=== PATIENT | female | born 1995 | race Caucasian/White ===

== ENCOUNTER 2019-10-14 14:14 | Emergency (ER) | payer OTHER, SELFPAY ==
[2019-10-14 14:17] VITALS: BP 113/73; PULSE 99; RESP 18; TEMP 37; O2SAT 100
--- NOTE | 2019-10-14 14:27 | ED.URI ---
HPI - URI/Sore Throat General Chief Complaint: Upper Respiratory Infection Stated Complaint: sore throat/cough/congestion History of Present Illness HPI Narrative: This is a 24-year-old female comes in complaining of cough and congestion has been going on for approximately a week and a half patient states that she is coughing more when she lays down she has ear pain and postnasal drainage Related Data Home Medications Medication Instructions Recorded Confirmed WN-LQ-adwjvd/PR-mzuqmd-mzuqvwe cap PO 10/14/19 [Vicks DayQuil-NyQuil] Depo-Provera 10/14/19 Allergies Allergy/AdvReac Type Severity Reaction Status Date / Time Sulfa (Sulfonamide Allergy Dyspnea / Verified 10/14/19 14:31 Antibiotics) SOB topiramate [From Topamax] Allergy Dyspnea / Verified 10/14/19 14:30 SOB Review of Systems Review of Systems: Narrative: CONSTITUTIONAL: Denies fever, chills, or sweats. EYES: Denies visual changes, redness, or discharge. ENT: Reports rhinorrhea, congestion, sore throat, or otalgia. CARDIOVASCULAR:Denies chest pain, palpitations, or edema. RESPIRATORY: Reports cough or dyspnea. GASTROINTESTINAL: Denies abdominal pain, nausea, vomiting, or diarrhea. GENITOURINARY: Denies dysuria or hematuria. SKIN:[Denies rash or itching. MUSCULOSKELETAL:Denies back pain, joint pain, or myalgia. NEUROLOGIC: Denies headache, numbness, or weakness. PSYCHIATRIC:Denies anxiety or depression PMFSH Comments At time as signature, I have reviewed and agree with nursing past medical, social, surgical and family history. Please see nursing chart for further information. There is no relevant family history pertinent to the presenting complaint. Exam Narrative: Exam Narrative: GENERAL:Well-appearing, well-nourished, and in no acute distress. HEAD:Normocephalic, atraumatic. EYES: PERRLA and EOMI. ENT: Nares clear, moderate rhinorrhea or epistaxis. Mucous membranes moist. Pharyngeal erythema NECK: Supple. CHEST: diminished wheezes bilaterally auscultation. No respiratory distress. HEART: Regular rate and rhythm. No murmur heard. Normal peripheral pulses. ABDOMEN: Soft, nontender, nondistended, normal active bowel sounds. EXTREMITIES: Normal range of motion. No edema. SKIN: Warm, dry, no rash. NEURO: No focal deficits. Alert and oriented x3. Course Vital Signs Vital signs: Vital Signs Temperature 98.6 F 10/14/19 14:17 Pulse Rate 99 10/14/19 14:17 Respiratory Rate 18 10/14/19 14:17 Blood Pressure 113/73 10/14/19 14:17 Pulse Oximetry 100 10/14/19 14:17 Temperature 98.6 F 10/14/19 14:17 Pulse Rate 99 10/14/19 14:17 Respiratory Rate 18 10/14/19 14:17 Blood Pressure 113/73 10/14/19 14:17 Pulse Oximetry 100 10/14/19 14:17 MDM - URI/Sore Throat Differential Diagnosis Differential diagnosis: Likely upper respiratory infection, otitis media, sinusitis, viral infection, bronchitis, influenza and pharyngitis Discharge Plan Discharge Clinical Impression: Bronchitis Patient Disposition: Home, Self-Care Condition: Stable Instructions: Antibiotic Form, Acute Bronchitis (ED), Allergies (ED) Prescriptions: New azithromycin [Zithromax Z-Juan] 250 mg tablet See Rx Instructions .ROUTE .COMPLEX Qty: 6 RF: 0 albuterol sulfate [Ventolin HFA] 90 mcg/actuation HFA aerosol inhaler 2 puff INHALATION QID PRN (Reason: shortness of breath or wheezing) Qty: 18 RF: 0 No Action Vicks DayQuil-NyQuil 10-5-325mg(d)/ 15-325-6.25mg Capsule, Sequential PO RF: 0 Depo-Provera RF: 0 Follow-up/Referrals: PHYSICIAN NOT ON STAFF,NONSTAFF [Primary Care Provider] - Time of Disposition: 14:41 Discharge Date/Time: 10/14/19 14:45
== END 2019-10-14 14:45 | disposition home or self-care (01) ==
PROVIDERS: Emergency Provider Nurse Practitioner Family
DX: J40 Bronchitis, not specified as acute or chronic (principal)
CPT/HCPCS: 99213; G0463

== ENCOUNTER 2019-10-25 18:36 | Emergency (ER) | payer OTHER, SELFPAY ==
[2019-10-25 18:50] VITALS: BP 121/85; PULSE 80; RESP 16; TEMP 36.9; O2SAT 100
--- NOTE | 2019-10-25 19:18 | ED.LOWEXIN ---
HPI - Extremity Injury (Lower) General Chief Complaint: Extremity Injury, Lower Stated Complaint: left foot injury History of Present Illness HPI Narrative: This is a 24 year old that started having pain on the foot close to her toes and it has continue to get worse . Patient states that it feels like she is alber walking on something and she does not know what to do. Related Data Home Medications Medication Instructions Recorded Confirmed medroxyprogesterone [Depo-Provera] 150 mg IM [id number] 10/25/19 10/25/19 Allergies Allergy/AdvReac Type Severity Reaction Status Date / Time Sulfa (Sulfonamide Allergy Rash Verified 10/25/19 18:51 Antibiotics) topiramate [From Topamax] Allergy Rash Verified 10/25/19 18:51 Review of Systems Review of Systems: Narrative: CONSTITUTIONAL: Denies fever, chills, or sweats. EYES: Denies visual changes, redness, or discharge. ENT: Denies rhinorrhea, congestion, sore throat, or otalgia. CARDIOVASCULAR:Denies chest pain, palpitations, or edema. RESPIRATORY: Denies cough or dyspnea. GASTROINTESTINAL: Denies abdominal pain, nausea, vomiting, or diarrhea. GENITOURINARY: Denies dysuria or hematuria. SKIN:[Denies rash or itching. MUSCULOSKELETAL:Denies back pain, joint pain, or myalgia. foot pain when she step on the foot NEUROLOGIC: Denies headache, numbness, or weakness. PSYCHIATRIC:Denies anxiety or depression PMFSH Social History Social History Gender identity (if verbalized by the patient): Female Comments At time as signature, I have reviewed and agree with nursing past medical, social, surgical and family history. Please see nursing chart for further information. There is no relevant family history pertinent to the presenting complaint. Exam Narrative: Exam Narrative: GENERAL:Well-appearing, well-nourished, and in no acute distress. HEAD:Normocephalic, atraumatic. EYES: PERRLA and EOMI. ENT: Nares clear, no rhinorrhea or epistaxis. Mucous membranes moist. NECK: Supple. CHEST: Clear to auscultation. No respiratory distress. HEART: Regular rate and rhythm. No murmur heard. Normal peripheral pulses. ABDOMEN: Soft, nontender, nondistended, normal active bowel sounds. EXTREMITIES: Normal range of motion. No edema. burning of her metarasal area when she steps down on her foot with shooting pain. No pain when not walking. SKIN: Warm, dry, no rash. NEURO: No focal deficits. Alert and oriented x3. Course Vital Signs Vital signs: Vital Signs Temperature 98.5 F 10/25/19 18:50 Pulse Rate 80 10/25/19 18:50 Respiratory Rate 16 10/25/19 18:50 Blood Pressure 121/85 10/25/19 18:50 Pulse Oximetry 100 10/25/19 18:50 Temperature 98.5 F 10/25/19 18:50 Pulse Rate 80 10/25/19 18:50 Respiratory Rate 16 10/25/19 18:50 Blood Pressure 121/85 10/25/19 18:50 Pulse Oximetry 100 10/25/19 18:50 Discharge Plan Discharge Clinical Impression: Pickard neuroma Patient Disposition: Home, Self-Care Condition: Stable Instructions: Antibiotic Form, Arthralgia (ED), Pickard Neuroma (ED) Additional Instructions: You need to call your Security Monitor and have a conversation with him. Especially if you are not able to tolerate the pain . NSAIDs help decrease swelling and pain or fever. This medicine is available with or without a doctor's order. NSAIDs can cause stomach bleeding or kidney problems in certain people. If you take blood thinner medicine, always ask your healthcare provider if NSAIDs are safe for you. Always read the medicine label and follow directions. Take your medicine as directed. Contact your healthcare provider if you think your medicine is not helping or if you have side effects. Tell him or her if you are allergic to any medicine. Keep a list of the medicines, vitamins, and herbs you take. Include the amounts, and when and why you take them. Bring the list or the pill bottles to follow-up visits. Carry your medicine list with you in case of an ginette
== END 2019-10-25 19:42 | disposition home or self-care (01) ==
PROVIDERS: Emergency Provider Nurse Practitioner Family
DX: G57.62 Lesion of plantar nerve, left lower limb (principal)
CPT/HCPCS: 99213; G0463

== ENCOUNTER 2020-04-10 13:12 | Emergency (ER) | payer OTHER, SELFPAY ==
[2020-04-10 13:16] VITALS: BP 134/83; PULSE 104; RESP 17; TEMP 36.3; O2SAT 100
--- NOTE | 2020-04-10 13:39 | ED.GENADULT ---
HPI - General Adult General Chief complaint: Unspecified Stated complaint: covid pos/st Time Seen by Provider: 04/10/20 13:24 Source: patient Mode of arrival: ambulatory Limitations: no limitations History of Present Illness HPI narrative: Patient is a 25-year-old female who presents with tonsillar hypertrophy and discomfort patient was diagnosed with COVID-19 on Sunday patient symptoms began Sunday patient's only complaint at this time is sore throat she denies any dyspnea chest pain minimal cough no vomiting diarrhea has not taken anything for symptom and notes just mild discomfort of the throat with swallowing Related Data Home Medications Medication Instructions Recorded Confirmed medroxyprogesterone [Depo-Provera] 150 mg IM [id number] 10/25/19 04/10/20 Allergies Allergy/AdvReac Type Severity Reaction Status Date / Time Sulfa (Sulfonamide Allergy Rash Verified 04/10/20 13:23 Antibiotics) topiramate [From Topamax] Allergy Rash Verified 04/10/20 13:23 Review of Systems Review of Systems: All systems reviewed & are unremarkable except as noted in HPI and below PMFSH Social History Social History Gender identity (if verbalized by the patient): Female Exam Narrative: Exam Narrative: GENERAL: Well-appearing, well-nourished, and in no acute distress. HEAD: Normocephalic, atraumatic. EYES: PERRLA and EOMI. ENT: Nares clear, no rhinorrhea or epistaxis. Mucous membranes moist. Oropharynx with tonsillar hypertrophy no exudate uvula midline no trismus minimal swelling noted NECK: Supple. No adenopathy or masses. CHEST: Clear to auscultation. No respiratory distress. No wheezes rales or rhonchi HEART: Regular rate and rhythm. No murmur heard. EXTREMITIES: Normal range of motion. No edema. SKIN: Warm, dry, no rash. NEURO: No focal deficits. Alert and oriented x3. PSYCH: Normal mood and affect. Course Course Emergency Course: Patient will be discharged treated symptomatically felt appropriate for outpatient reevaluation Vital Signs Vital signs: Vital Signs Temperature 97.4 F L 04/10/20 13:16 Pulse Rate 104 H 04/10/20 13:16 Respiratory Rate 17 04/10/20 13:16 Blood Pressure 134/83 04/10/20 13:16 Pulse Oximetry 100 04/10/20 13:16 Temperature 97.4 F L 04/10/20 13:16 Pulse Rate 104 H 04/10/20 13:16 Respiratory Rate 17 04/10/20 13:16 Blood Pressure 134/83 04/10/20 13:16 Pulse Oximetry 100 04/10/20 13:16 Medical Decision Making MDM Narrative Medical decision making narrative: Patient with no concerning findings at this time will be treated symptomatically provided with reasons to return Vital Signs Vital Signs: Vital Signs Temperature 97.4 F L 04/10/20 13:16 Pulse Rate 104 H 04/10/20 13:16 Respiratory Rate 17 04/10/20 13:16 Blood Pressure 134/83 04/10/20 13:16 Pulse Oximetry 100 04/10/20 13:16 Temperature 97.4 F L 04/10/20 13:16 Pulse Rate 104 H 04/10/20 13:16 Respiratory Rate 17 04/10/20 13:16 Blood Pressure 134/83 04/10/20 13:16 Pulse Oximetry 100 04/10/20 13:16 Discharge Plan Discharge Clinical Impression: Pharyngitis, COVID-19 Patient Disposition: Home, Self-Care Condition: Stable Instructions: Antibiotic Form, COVID-19 (Coronavirus Disease 2019) (ED) Additional Instructions: Follow up with your primary care provider within 7-10 days for reevaluation. Go to ER for shortness of breath, difficulty breathing, chest pain, fever/chills, weakness, nauseau/vomitting, unable to swallow or open the mouth etc. or any other concerns. Stay well-hydrated Take any prescribed medications as directed. Follow patient education sheets If you do not have a drug allergy to tylenol or motrin and can tolerate it then take tylenol or motrin as needed for discomfort/pain. Prescriptions: New ibuprofen [IBU] 600 mg tablet 600 mg PO QID PRN (Reason: fever or pain) Qty: 7
[2020-04-10] MEDS: IBUPROFEN 600 MG TABLET PO (14:15)
[2020-04-10 14:26] VITALS: BP 128/88; PULSE 98; RESP 20; O2SAT 98
== END 2020-04-10 14:27 | disposition home or self-care (01) ==
PROVIDERS: Emergency Provider Emergency Medicine
DX: U07.1 COVID-19 (principal); J02.9 Acute pharyngitis, unspecified
CPT/HCPCS: 99283; A9270

== ENCOUNTER 2021-08-18 16:12 | Outpatient (CLI) | payer OTHER, SELFPAY ==
--- NOTE | ~2021-08-18 | US_ITS ---
EXAMINATION: US thyroid DATE: 08/18/2021 16:41 INDICATION: Nontoxic goiter, unspecified. TECHNIQUE: Multiple ultrasound images of the thyroid were obtained. COMPARISON: None. FINDINGS: The right thyroid lobe measures 5.2 x 1.7 x 2.0 cm. The left thyroid lobe measures 5.0 x 1.4 x 1.7 c m. The thyroid is diffusely heterogeneous and hypoechoic with increased vascularity. No discrete nod ule. IMPRESSION: 1. 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 Reviewed, dictated and finalized at location E. IN[facility]
== END 2021-08-18 16:13 | disposition home or self-care (01) ==
LOC: ANHIMG 16:14
PROVIDERS: PCP Family Medicine; Visit Provider Family Medicine
DX: E04.9 Nontoxic goiter, unspecified (principal)
CPT/HCPCS: 76536

== ENCOUNTER 2023-02-08 10:31 | Outpatient (CLI) | payer OTHER, SELFPAY ==
[2023-02-08 11:36] LABS: Free T4 Free Thyroxine 1.06 ng/mL (0.78-2.19)
[2023-02-08 11:43] LABS: Total Triiodothyronine (T3) 1.51 NG/ML (0.97-1.69)
[2023-02-08 11:53] LABS: HIV 1/2 Ab P24 Ag Result Negative (Negative)
== END 2023-02-08 10:32 | disposition home or self-care (01) ==
LOC: ANHLAB 10:33
PROVIDERS: PCP Family Medicine; Visit Provider Student in an Organized Health Care Education/Training Program
DX: Z34.90 Encounter for supervision of normal pregnancy, unspecified, unspecified trimester (principal); E06.3 Autoimmune thyroiditis; N94.89 Other specified conditions associated with female genital organs and menstrual cycle
CPT/HCPCS: 36415; 84439; 84443; 84480; 86703; 86900; 86901; G0432

== ENCOUNTER 2023-04-17 18:59 | Outpatient (RCR) | payer OTHER, SELFPAY ==
[2023-04-17 19:35] VITALS: BP 108/65; PULSE 107
== END 2023-07-16 23:59 | disposition home or self-care (01) ==
LOC: ANHOBOP 18:59
PROVIDERS: PCP Family Medicine; Visit Provider Obstetrics & Gynecology
DX: O36.8130 Decreased fetal movements, third trimester, not applicable or unspecified (principal); Z3A.28 28 weeks gestation of pregnancy
CPT/HCPCS: 59025

== ENCOUNTER 2023-05-04 15:10 | Outpatient (CLI) | payer OTHER, SELFPAY ==
[2023-05-04 16:24] LABS: Basophils Absolute Auto 0.1 K/mm3 (0.0-0.1); Basophils Percent Auto 0.5 % (0.2-1.2); Eosinophils Absolute Auto 0.1 K/mm3 (0-0.3); Hematocrit 34.4 % (37.0-47.0); Hemoglobin 11.1 g/dL (12.0-15.0); Immature Granulocyte Absolute 0.54 K/mm3 (0.00-0.031); Immature Granulocyte Percent A 4.7 % (0-0.5); Lymphocytes Absolute Auto 2.48 K/mm3 (0.9-3.2); Lymphocytes Percent Auto 21.5 % (18.3-44.2); Mean Corpuscular HGB Conc 32.3 g/dl (32-36); Mean Corpuscular Hemoglobin 28.7 pg (26-34); Mean Corpuscular Volume 88.9 fl (80-100); Mean Platelet Volume 10.5 fl (7.4-10.4); Monocytes Absolute Auto 1.3 K/mm3 (0.1-0.6); Monocytes Percent Auto 10.9 % (2.6-8.5); Neutrophils Absolute Auto 7.1 K/mm3 (1.3-6.7); Neutrophils Percent Auto 61.4 % (45.5-73.1); Platelet Count Result 176 k/mm3 (150-375); Red Blood Count 3.87 M/mm3 (4.2-5.4); Red Cell Distribution Width 13.3 % (11.5-14.5); White Blood Count 11.6 K/mm3 (4.5-10.0)
[2023-05-04 16:38] LABS: Glucose 1 Hour PP 50gm Dose 108 mg/dL
[2023-05-04 17:54] LABS: Free T4 Free Thyroxine 0.68 ng/mL (0.78-2.19)
[2023-05-04 18:08] LABS: HIV 1/2 Ab P24 Ag Result Negative (Negative)
== END 2023-05-04 15:11 | disposition home or self-care (01) ==
LOC: ANHLAB 15:12
PROVIDERS: PCP Family Medicine; Visit Provider Obstetrics & Gynecology
DX: Z34.90 Encounter for supervision of normal pregnancy, unspecified, unspecified trimester (principal); E06.3 Autoimmune thyroiditis
CPT/HCPCS: 36415; 82947; 84439; 84443; 85025; 86703; G0432

== ENCOUNTER 2023-06-10 09:10 | Observation (INO) | payer OTHER, SELFPAY ==
[2023-06-10] VITALS (21 sets, daily range): BP systolic 101–129; BP diastolic 73–88; PULSE 102–150; TEMP 36.2; O2SAT 98–99; BMI 33.3
--- NOTE | 2023-06-10 09:10 | OBADM ---
This patient, Helen Morrissey, admitted to the OB room Labor/Delivery/Recovery 106 for observation. Patient/family oriented to hospital policies and general routines including ID bracelet, bed and alarms, visiting hours, pain management, procedures, bathroom and other care routines, personal items, smoking policy, room service/diet, and visiting hours. Patient/Family are encouraged to report perceived risks to care and to ask questions if they do not understand what they are told or what they should do.
[2023-06-10 11:23] LABS: Appearance Urine Cloudy (Clear); Bacteria Urine 4+ /hpf; Bilirubin Urine Negative (Negative); Blood Urine 3+ (Negative); Color Urine Yellow (Yellow); Glucose Urine UA Negative (Negative); Ketones Urine 1+ mg/dL (Negative); Leukocyte Esterase Ur 3+ LEU/UL (NEGATIVE); Need Manual Microscopic Reviewed; Nitrate Urine Negative (Negative); Protein Urine Trace mg/dL (Negative); Specific Grav Ur 1.015 (1.001-1.035); Squamous Epithelial Cell Urine Few /hpf (Few); Urobilinogen Urine 0.2 mg/dL (<2.0); WBC Urine 51-100 /hpf (0-3)
[2023-06-10 11:45] LABS: Add Urine Microscopic? YES
--- NOTE | 2023-06-12 13:55 | P.PNOB_ITS ---
OB - Triage/Final Diagnosis Visit Information Reason for evaluation: threatened labor Comments/Additional reasons for admission: I have assessed the risk for this patient, Helen Macias Morrissey, and determined that she would benefit from observation care. Evaluation Laboratory results: Laboratory Tests 06/10/23 10:54 Urine Color Yellow Urine Appearance Cloudy H Urine pH 7.0 Ur Specific [place] 1.015 Urine Protein Trace Urine Glucose (UA) Negative Urine Ketones 1+ H Ur Blood (Man) 3+ H Urine Nitrate Negative Urine Bilirubin Negative Urine Urobilinogen 0.2 Ur Leukocyte Esterase 3+ H Add Ur Microanalysis Reviewed Urine RBC 6-10 H Urine WBC 51-100 Ur Squamous Epith Cells Few Urine Bacteria 4+ H Urine Casts 3-5
== END 2023-06-10 12:27 | disposition home or self-care (01) ==
PROVIDERS: Admitting Provider Obstetrics & Gynecology; PCP Family Medicine; Visit Provider Obstetrics & Gynecology
DX: O47.03 False labor before 37 completed weeks of gestation, third trimester (principal); O26.893 Other specified pregnancy related conditions, third trimester; R10.9 Unspecified abdominal pain; Z3A.35 35 weeks gestation of pregnancy
CPT/HCPCS: 81001; 84112; 87086; 87088; G0378; G0379

== ENCOUNTER 2023-06-24 11:52 | Outpatient (CLI) | payer OTHER, SELFPAY ==
[2023-06-24 12:15] VITALS: BP 132/87; PULSE 135
[2023-06-24 12:22] LABS: Basophils Absolute Auto 0.1 K/mm3 (0.0-0.1); Basophils Percent Auto 0.4 % (0.2-1.2); Eosinophils Absolute Auto 0.3 K/mm3 (0-0.3); Hematocrit 41.1 % (37.0-47.0); Hemoglobin 13.4 g/dL (12.0-15.0); Immature Granulocyte Absolute 0.12 K/mm3 (0.00-0.031); Lymphocytes Absolute Auto 2.05 K/mm3 (0.9-3.2); Lymphocytes Percent Auto 16.2 % (18.3-44.2); Mean Corpuscular HGB Conc 32.6 g/dl (32-36); Mean Corpuscular Hemoglobin 28.5 pg (26-34); Mean Corpuscular Volume 87.3 fl (80-100); Mean Platelet Volume 11.1 fl (7.4-10.4); Monocytes Absolute Auto 1.2 K/mm3 (0.1-0.6); Monocytes Percent Auto 9.1 % (2.6-8.5); Neutrophils Percent Auto 71.3 % (45.5-73.1); Platelet Count Result 166 k/mm3 (150-375); Red Blood Count 4.71 M/mm3 (4.2-5.4); Red Cell Distribution Width 15.2 % (11.5-14.5); White Blood Count 12.6 K/mm3 (4.5-10.0)
[2023-06-24 12:30] VITALS: BP 122/83; PULSE 113
[2023-06-24 12:31] LABS: Creatinine Urine 71.8 mg/dL; Total Protein Urine Random 8 mg/dL; Ur Ttl Prot Creatinine Ratio 0.11 mg/mg (0-0.20)
[2023-06-24 12:32] LABS: Alanine Aminotransferase 13 U/L (6-35); Albumin Level 3.5 g/dL (3.5-5.1); Alkaline Phosphatase 163 U/L (38-126); Anion Gap 8 mmol/L (8-16); Aspartate Amino Transferase 23 U/L (14-36); Bilirubin,Total 0.4 mg/dL (0.2-1.3); Blood Urea Nitrogen 3 mg/dL (7-17); Calcium 9.4 mg/dL (8.4-10.2); Carbon Dioxide 18 mmol/L (22-30); Chloride 108 mmol/L (98-107); Estimated Glomerular Filt Rate > 60; Glucose 97 mg/dL (65-110); Potassium 3.9 mmol/L (3.4-5.0); Sodium 134 mmol/L (137-145); Uric Acid 5.1 mg/dL (2.5-7.5)
[2023-06-24 12:45] VITALS: BP 117/80; PULSE 105
[2023-06-24 12:48] LABS: Add Urine Microscopic? YES; Appearance Urine Cloudy (Clear); Bacteria Urine 2+ /hpf; Bilirubin Urine Negative (Negative); Blood Urine Negative (Negative); Color Urine Yellow (Yellow); Glucose Urine UA Negative (Negative); Ketones Urine 1+ mg/dL (Negative); Leukocyte Esterase Ur 1+ LEU/UL (NEGATIVE); Need Manual Microscopic Reviewed; Nitrate Urine Negative (Negative); Non Pathogenic Casts 0-2; Protein Urine Negative (Negative); RBC Urine 0-2 /hpf (0-2); Specific Grav Ur 1.012 (1.001-1.035); Squamous Epithelial Cell Urine Few /hpf (Few); Urobilinogen Urine 0.2 mg/dL (<2.0); WBC Urine 21-50 /hpf (0-3)
--- NOTE | 2023-06-24 12:53 | PC.NURSE ---
1253--Reported labs, BPs and NST to Dr. Conley. DC orders given.
[2023-06-24 13:31] VITALS: BP 132/78; PULSE 68
== END 2023-06-25 13:58 | disposition home or self-care (01) ==
LOC: ANHOBOP 11:58 → ANHLDR 07-03 06:35
PROVIDERS: PCP Family Medicine; Visit Provider Obstetrics & Gynecology
DX: O13.9 Gestational [pregnancy-induced] hypertension without significant proteinuria, unspecified trimester (principal); Z3A.00 Weeks of gestation of pregnancy not specified
CPT/HCPCS: 36415; 59025; 80053; 81001; 82570; 84156; 84550; 85025; 87086; 87088; 99199

== ENCOUNTER 2023-07-01 23:03 | Inpatient (IN) | payer OTHER, SELFPAY ==
[2023-07-01 23:14] VITALS: BP 129/91; PULSE 99
[2023-07-01 23:31] VITALS: BP 127/93; PULSE 95
[2023-07-02] VITALS (187 sets, daily range): BP systolic 79–139; BP diastolic 41–99; PULSE 30–144; RESP 18; TEMP 36.1–37.5; O2SAT 78–100; BMI 35.2
[2023-07-02 00:03] LABS: Basophils Percent Auto 0.4 % (0.2-1.2); Eosinophils Absolute Auto 0.4 K/mm3 (0-0.3); Eosinophils Percent Auto 4.1 % (0-4.4); Hematocrit 38.1 % (37.0-47.0); Hemoglobin 12.6 g/dL (12.0-15.0); Immature Granulocyte Absolute 0.17 K/mm3 (0.00-0.031); Immature Granulocyte Percent A 1.8 % (0-0.5); Lymphocytes Absolute Auto 2.37 K/mm3 (0.9-3.2); Mean Corpuscular HGB Conc 33.1 g/dl (32-36); Mean Corpuscular Volume 87.6 fl (80-100); Mean Platelet Volume 11.6 fl (7.4-10.4); Monocytes Absolute Auto 1.2 K/mm3 (0.1-0.6); Monocytes Percent Auto 12.7 % (2.6-8.5); Neutrophils Absolute Auto 5.3 K/mm3 (1.3-6.7); Platelet Count Result 162 k/mm3 (150-375); Red Blood Count 4.35 M/mm3 (4.2-5.4); Red Cell Distribution Width 14.6 % (11.5-14.5); White Blood Count 9.5 K/mm3 (4.5-10.0)
--- NOTE | 2023-07-02 00:39 | LDADM ---
This patient, Helen Morrissey, was admitted to Labor/Delivery/Recovery 105 on 07/01/23 at 23:03. Plans for labor, pain management and were discussed with patient. Patient/family oriented to hospital policies and general routines including ID bracelet, bed and alarms, visiting hours, pain management, procedures, bathroom and other care routines, personal items, smoking policy, room service/diet and guest tray routines, infant security routines, and visiting hours. Patient/Family are encouraged to report perceived risks to care and to ask questions if they do not understand what they are told or what they should do. See OBIX for further documentation.
[2023-07-02] MEDS: LACTATED RINGERS 1,000 ML 125 ML IV CONT ×3 (03:56→09:28)
[2023-07-02] MEDS: fentaNYL CITRATE INJ (*CRX) 100 MCG/2 ML VIAL IV PUSH ×2 (03:56→06:03)
[2023-07-02] MEDS: LORATADINE 10 MG TABLET PO (06:04)
[2023-07-02] MEDS: SALINE 0.65% NAS SOLN 44 ML BTL 1 SPRAY NASAL (06:04)
--- NOTE | 2023-07-02 06:06 | WPDANESEPP ---
Anes - Eval Pre Procedure Procedure: labor epidural Date/Time: 07/02/23 06:06 Surgeon: benito Preop Diagnosis: pain during labor Pre Op Diagnosis: Leaking Fluid Patient Data Age: 28 Gender: F Height: 1.65 m Weight: 96 kg Last Vital Signs Pulse 80 07/02/23 03:55 BP 122/88 07/02/23 03:55 Pulse Ox 100 07/02/23 06:04 Allergies Allergy/AdvReac Type Severity Reaction Status Date / Time Sulfa (Sulfonamide Allergy Rash Verified 06/27/23 17:23 Antibiotics) topiramate [From Topamax] Allergy Rash Verified 06/27/23 17:23 Home Medications Medication Instructions Recorded Confirmed Type licbzlyswq-prirbkkihufyt-gjwreswn 1 cap PO Q8H PRN migraine headache 12/14/22 06/27/23 Rx 50 mg-300 mg-40 mg capsule #30 caps (Fioricet) rizatriptan 5 mg disintegrating See Rx Instructions PO .COMPLEX 02/08/23 06/27/23 Rx tablet #30 tabs sertraline 50 mg tablet 50 mg PO DAILY #90 tabs 04/18/23 06/27/23 Rx ferrous sulfate 325 mg (65 mg 325 mg PO DAILY 06/14/23 06/27/23 History iron) tablet prenat.vits,kimo,ywx-demn-nwnjq 1 tablet 06/14/23 06/27/23 History levothyroxine 75 mcg tablet 75 mcg PO DAILY #90 tabs 06/21/23 06/27/23 Rx dicloxacillin 500 mg capsule 500 mg PO Q6H 10 days #40 caps 06/26/23 06/27/23 Rx Laboratory Tests 07/01/23 23:52 WBC 9.5 K/mm3 (4.5-10.0) RBC 4.35 M/mm3 (4.2-5.4) Hgb 12.6 g/dL (12.0-15.0) Hct 38.1 % (37.0-47.0) MCV 87.6 fl (80-100) MCH 29.0 pg (26-34) MCHC 33.1 g/dl (32-36) RDW 14.6 H % (11.5-14.5) Plt Count 162 k/mm3 (150-375) MPV 11.6 H fl (7.4-10.4) Immature Gran % (Auto) 1.8 H % (0-0.5) Neut % (Auto) 56.0 % (45.5-73.1) Lymph % (Auto) 25.0 % (18.3-44.2) Stephens % (Auto) 12.7 H % (2.6-8.5) Eos % (Auto) 4.1 % (0-4.4) Baso % (Auto) 0.4 % (0.2-1.2) Lymph # (Auto) 2.37 K/mm3 (0.9-3.2) Stephens # (Auto) 1.2 H K/mm3 (0.1-0.6) Eos # (Auto) 0.4 H K/mm3 (0-0.3) Baso # (Auto) 0.0 K/mm3 (0.0-0.1) Abs Immat Gran (auto) 0.17 H K/mm3 (0.00-0.031) Absolute Neuts (auto) 5.3 K/mm3 (1.3-6.7) Absolute Nucleated RBC 0.0 K/mm3 (0.0-0.012) Nucleated RBC % 0.0 % (0.0-0.2) RPR Pending Blood Type AB Positive Antibody Screen Negative Patient hx anesthesia problems: none Family hx anesthesia problems: none Results Review: All pre-operative results and documents have been reviewed as part of the pre-operative evaluation. 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 Labial burning Migraines Surgical History Surgical History S/P bunionectomy Family History Family History Father Depression Mother Depression Hypertension Diabetes mellitus Sibling Depression Social History Social History Social History: Single Smoking status: Never smoker Second hand tobacco smoke exposure: No Alcohol intake: never Substance use: never Substance use type: does not use Do You Feel Safe in your Home?: No Lack of Transportation: No Lack of Food: Never True Current Housing: I Have Housing Concerned About Future Housing: No Difficulty Paying Gas/Electric Bills: No Difficulty Paying for Meds: No Currently Unemployed: No Education: Master's Degree or Higher Difficulty w/ Childcare or Family Care: No Living arrangements: with family Occupation/Education: occupation Additional occupation/education comments: Teacher Gender identity (if verbalized by the patient): Female Sexual Orientation (if Verbalized by the Patient): Straight or Heterosexual Spiritual care concerns: No Exam Day of Procedure 07/02/23 06:06
[2023-07-02] MEDS: ONDANSETRON INJ 4 MG/2 ML VIAL IV PUSH (06:16)
[2023-07-02] MEDS: PHENYLEPHRINE 1,000 MCG/10 ML SYRINGE 100 MCG IV PUSH ×2 (06:30→07:06)
--- NOTE | 2023-07-02 13:35 | WPDOBADMIT ---
Obstetrics - Admit Note Admission Note: record reviewed. No pertinent additions to the history and/or any subsequent changes in the physical findings that are not consistent with the expected course of the were found. Additions to the history and/or subsequent changes in the physical findings follow. Here with [facility] in labor. Progressed to complete and pushing on my arrival .
--- NOTE | 2023-07-02 13:36 | P.PCNOB_ITS ---
OB - Vaginal Delivery Note Procedure Delivery date: 07/02/23 Induction method: None Delivery monitor: External FHT and External Uterine Route of delivery: Episiotomy description: None Laceration Description: Periurethral (right) and Perineal - 1st Degree Delivery repair: vicryl (3-0) Specimen: No Quantitative Blood Loss (ml): 250 Anesthesia type: Epidural Disposition: Floor Complications: No immediate complications [place] Baby Date of : 07/02/23 Weeks of gestation at delivery: 38 (38 6/7) Infant gender: Female presentation: vertex position: Right Occiput Anterior Placenta delivery description: Spontaneous Cord Vessel Description: 3 Vessels score one minute: 9 score five minutes: 9
[2023-07-02] MEDS: OXYTOCIN 30 UNITS/NS 500 ML 30 UNITS/500 ML BAG 125 UNITS IV CONT (13:57)
[2023-07-02] MEDS: WITCH HAZEL 40 PADS 1 PAD TOPICAL (14:51)
[2023-07-02] MEDS: ACETAMINOPHEN 325 MG TABLET 650 MG PO (14:51)
[2023-07-02] MEDS: BENZOCAINE 20% AER SPR (*SP) 56 GM CAN 1 SPRAY TOPICAL (14:51)
--- NOTE | 2023-07-02 16:50 | OBPPTRN ---
0665 Patient transferred to post room #282 via W/C. Support person present. Oriented to unit, room, information board, rooming in, admission packet and security measures. Patient verbalizes understanding.
[2023-07-03 05:21] LABS: Hematocrit 35.2 % (37.0-47.0); Hemoglobin 11.3 g/dL (12.0-15.0)
[2023-07-03 05:49] VITALS: BP 122/82; PULSE 81; RESP 18; TEMP 37.1; O2SAT 100
[2023-07-03] MEDS: DOCUSATE SODIUM 100 MG CAPSULE PO (07:29)
[2023-07-03] MEDS: MULTIVIT/MIN/PREN/FOL AC/IRON TABLET 1 TAB PO (07:29)
[2023-07-03] MEDS: ACETAMINOPHEN 325 MG TABLET 650 MG PO (07:29)
[2023-07-03 07:30] VITALS: BP 138/87; PULSE 93; RESP 16; TEMP 37.2; O2SAT 99
[2023-07-03 10:33] LABS: Rapid Plasma Reagin Non-Reactive (NonReactive)
[2023-07-03 12:46] VITALS: BP 127/86; PULSE 97; RESP 18; TEMP 36.6; O2SAT 99
--- NOTE | 2023-07-03 19:13 | WPDANLDPN2 ---
Anes-Prog Note L&D Date/Time: 07/03/23 19:13 Neuro status: Neuro function grossly intact. Cardiovascular status: normal Respiratory status: normal Airway patency: baseline Mental status: baseline Post-Op hydration status: normal Vital Signs: Last Vital Signs Temp 36.6 C 07/03/23 12:46 Pulse 97 07/03/23 12:46 Resp 18 07/03/23 12:46 BP 127/86 07/03/23 12:46 Pulse Ox 99 07/03/23 12:46 O2 Del Method Room Air 07/03/23 07:30 Pain score (VAS): 0 Post-procedural complaints: none Patient feedback: Patient satisfied with anesthetic care.
[2023-07-03 21:36] VITALS: BP 129/82; PULSE 72; RESP 18; TEMP 37.1; O2SAT 100
[2023-07-04 08:47] VITALS: BP 126/81; PULSE 77; RESP 16; TEMP 37.1; O2SAT 98
--- NOTE | 2023-07-04 10:38 | PM.OBDSVD ---
DS: Admitting Diagnosis Discharge Date 07/04/23 Admitting Diagnosis intrauterine at term DS: Discharge Diagnosis Discharge Diagnosis (1) Normal vaginal delivery: Code(s): O80 - Encounter for full-term uncomplicated delivery Status: Acute OB - DS: Summary OB Procedures : None OB Procedures Intrapartum: Spontaneous Vag Delivery OB Procedures: : None Peripartum Data Laceration Description: Periurethral (right) and Perineal - 1st Degree Episiotomy description: None Status at Discharge Functional status at discharge: independent ambulation Overall status at discharge: patient is back to baseline Time Spent with Patient Time attestation: Total time spent providing and/or coordinating discharge services: Time spent: Less than 30 minutes Exam Const: General: comfortable and no acute distress Resp: Effort & Inspection: normal respiratory effort Auscultation: clear to auscultation bilaterally Cardio: Rate: regular rate GI: GI Palp: Yes Soft to palpation Auscultation: normal bowel sounds Other: Fundus firm below umbilicus Psych: Appearance: grossly normal Mental Status: mental status grossly normal Affect: normal affect Discharge Plan Discharge Discharging Clinician: Romero Lewis Patient Disposition: Home, Self-Care Activity: as tolerated and pelvic rest Diet: regular Patient Instructions: Antibiotic Form, Vaginal Delivery (DC) Stand Alone Forms: General Discharge Information Follow-up/Referrals: Barbara Newman MD [Physician] - Discharge Medications: New ibuprofen 600 mg tablet 600 mg PO Q6H PRN (Reason: pain) Qty: 30 0RF acetaminophen 500 mg tablet 500 mg PO Q6H PRN (Reason: pain) Qty: 30 0RF Continued rizatriptan 5 mg tablet,disintegrating See Rx Instructions PO .COMPLEX Qty: 30 1RF Rx Instructions: take 1 tablet at onset of headache; if no relief, may repeat 1 tablet after at least 2 hrs PO levothyroxine 75 mcg tablet 75 mcg PO DAILY Qty: 90 2RF #2 Tablet 1 tablet DAILY ferrous sulfate 325 mg (65 mg iron) Tablet 325 mg PO DAILY sertraline 50 mg tablet 50 mg PO DAILY Qty: 90 1RF dicloxacillin 500 mg capsule 500 mg PO Q6H 10 Days Qty: 40 0RF Date of admission: 07/01/23 23:03 Primary Care Provider: Angella Philip Admitting Provider: Barbara Newman Attending physician on admission: Barbara Newman Condition: Stable
[2023-07-05 10:30] VITALS: BP 126/90; PULSE 84; RESP 18; TEMP 37.5; O2SAT 97
--- NOTE | 2023-07-11 17:43 | PM.OBPNVD ---
OB - PN: Subj Subjective Date/time seen: 07/11/23 17:43 OB - PN: Obj Data Labs 07/03/23 04:50 OB - PN A/P Plan Comments: Addendum Documented By: ?Yolande Meyers 07/11/23 174 Addendum Signed By: <Electronically signed by? Yolande DoronArt CASEY Mira> 07/11/23 1741 OB - PN: Subj Subjective Date/time seen: 07/03/23? 08:10 Interval history: Doing well. Urinating without difficulty. Denies passing any large clots. Denies dizziness with ambulating. Tolerating po food and fluids. Bonding with . Support person present at bedside. Patient comments: pain well controlled baby status: doing well [place] feeding status: pumping and storing Narrative: Has pumped twice. OB - PN: Obj Data Labs Labs: Laboratory Results - last 24 hr ? 07/02/23 07/02/23 07/02/23 ? 13:40 15:16 16:32 Cord ABG pH ?7.218 ? ? Cord ABG pCO2 ?64.4 H ? ? Cord ABG pO2 ?< 27.0 H ? ? Cord ABG HCO3 ?25.6 H ? ? Cord ABG Base Excess ?-3.90 L ? ? Cord VBG pH ?7.310 ? ? Cord VBG pCO2 ?49.8 H ? ? Cord VBG pO2 ?< 27.0 ? ? Cord VBG HCO3 ?24.5 H ? ? Cord VBG Base Excess ?-2.50 L ? ? POC Capillary Glucose ? ?54 L ?54 L Cord Blood Type ?B Positive ? ? JOSIE, IgG Interpret ?Neg ? ? Mother's Blood Type ?Ab pos ? ? ? 07/02/23 07/03/23 ? 19:54 00:01 Cord ABG pH ? ? Cord ABG pCO2 ? ? Cord ABG pO2 ? ? Cord ABG HCO3 ? ? Cord ABG Base Excess ? ? Cord VBG pH ? ? Cord VBG pCO2 ? ? Cord VBG pO2 ? ? Cord VBG HCO3 ? ? Cord VBG Base Excess ? ? POC Capillary Glucose ?52 L ?57 L* Cord Blood Type ? ? JOSIE, IgG Interpret ? ? Mother's Blood Type ? ? OB - PN A/P Plan day: 1 Plan: routine care Comments: Discussed frequency of breast pumping. Encouraged to pump q 2-3 hours while awake and at least 8-10 times in 24 hours. Also discussed hand expression technique and rationale. Time Spent With Patient Time: Total time spent is greater than 50% in coordination of care (as documented) at patient's floor/unit and/or counseling patient: Review of Systems Review of Systems:?? All systems reviewed & are unremarkable except as noted in HPI and below Exam Narrative:?? Alert and oriented. Mood is pleasant and cooperative. Perineum with minimal edema. Fundus firm and below umbilicus. ? Const:?? General: cooperative, healthy appearing, no acute distress and alert? Orientation/consciousness: patient oriented x3? Limitations: no limitations Resp:?? Effort & Inspection: normal respiratory effort and able to speak in complete sentences? Auscultation: clear to auscultation bilaterally Cardio:?? Rate: regular rate GI:?? Inspection: normal to inspection? Auscultation: normal bowel sounds :?? General: Yes bladder normal to palpation? External Female Exam: other (lochia WNL)? Bimanual exam- vagina & uterus: bladder normal to palpation? Other: Fundus firm and below U ? Skin:?? General skin exam: normal color and no rashes or lesions noted Neuro:?? General: patient oriented x3 and moves all extremities? Cognition (Neuro): normal cognition Extrem:?? General: normal to inspection and no calf tenderness Psych:?? Appearance: grossly normal? Mental Status: mental status grossly normal? Affect: normal affect? Thought process: Normal thought process present This report may have been done utilizing a voice recognition system.? Attempts have been made to correct errors. However, there may be uncorrected grammatical, spelling, and recognition errors present. Time Spent With Patient Time: Total time spent is greater than 50% in coordination of care (as documented) at patient's floor/unit and/or counseling patient:
== END 2023-07-04 12:34 | disposition home or self-care (01) | DRG 807 ==
LOC: ANHLDR 23:32 → ANHOB2 07-02 16:17
PROVIDERS: Obstetrics & Gynecology Gynecology; Admitting Provider Obstetrics & Gynecology; PCP Family Medicine; Visit Provider Obstetrics & Gynecology
DX: O70.0 First degree perineal laceration during delivery (principal); Z37.0 Single live birth; Z3A.38 38 weeks gestation of pregnancy; O71.82 Other specified trauma to perineum and vulva
CPT/HCPCS: 36415; 84112; 85014; 85018; 85025; 86592; 86850; 86900; 86901; A9270; J2371; J2405; J2590; J2795; J3010; J7120

== ENCOUNTER 2023-11-10 10:08 | Outpatient (CLI) | payer OTHER, SELFPAY ==
[2023-11-10 10:59] LABS: Total Triiodothyronine (T3) 0.99 NG/ML (0.97-1.69)
[2023-11-10 11:15] LABS: Free T4 Free Thyroxine 1.09 ng/mL (0.78-2.19)
== END 2023-11-10 10:09 | disposition home or self-care (01) ==
LOC: ANHLAB 10:10
PROVIDERS: PCP Family Medicine; Visit Provider Family Medicine
DX: E03.9 Hypothyroidism, unspecified (principal)
CPT/HCPCS: 36415; 84439; 84443; 84480

== ENCOUNTER 2024-04-01 16:54 | Outpatient (CLI) | payer OTHER, SELFPAY ==
[2024-04-01 17:54] LABS: Hematocrit 39.7 % (37.0-47.0); Hemoglobin 13.6 g/dL (12.0-15.0); Mean Corpuscular HGB Conc 34.3 g/dl (32-36); Mean Corpuscular Hemoglobin 28.9 pg (26-34); Mean Corpuscular Volume 84.5 fl (80-100); Mean Platelet Volume 11.3 fl (7.4-10.4); Platelet Count Result 251 k/mm3 (150-375); Red Cell Distribution Width 12.6 % (11.5-14.5); White Blood Count 10.1 K/mm3 (4.5-10.0)
[2024-04-01 18:15] LABS: Alanine Aminotransferase 15 U/L (6-35); Albumin Level 4.5 g/dL (3.5-5.1); Alkaline Phosphatase 68 U/L (38-126); Anion Gap 13 mmol/L (4-12); Aspartate Amino Transferase 28 U/L (14-36); Bilirubin,Total 0.2 mg/dL (0.2-1.3); Blood Urea Nitrogen 14 mg/dL (7-17); Calcium 9.1 mg/dL (8.4-10.2); Carbon Dioxide 22 mmol/L (22-30); Chloride 102 mmol/L (98-107); Estimated Glomerular Filt Rate > 60; Glucose 83 mg/dL (65-110); Potassium 3.4 mmol/L (3.4-5.0); Sodium 137 mmol/L (137-145)
[2024-04-01 18:50] LABS: Free T4 Free Thyroxine 0.88 ng/mL (0.78-2.19)
== END 2024-04-01 16:55 | disposition home or self-care (01) ==
LOC: ANHLAB 16:55
PROVIDERS: PCP Family Medicine; Visit Provider Physician Assistant
DX: E07.9 Disorder of thyroid, unspecified (principal); E06.3 Autoimmune thyroiditis; R53.83 Other fatigue
CPT/HCPCS: 36415; 80053; 84439; 84443; 85027

== ENCOUNTER 2024-06-07 12:57 | Outpatient (CLI) | payer OTHER, SELFPAY ==
[2024-06-07 14:09] LABS: Free T4 Free Thyroxine 1.16 ng/mL (0.78-2.19)
== END 2024-06-07 12:58 | disposition home or self-care (01) ==
LOC: ANHLAB 12:58
PROVIDERS: PCP Family Medicine; Visit Provider Student in an Organized Health Care Education/Training Program
DX: E03.9 Hypothyroidism, unspecified (principal)
CPT/HCPCS: 36415; 84439; 84443

== ENCOUNTER 2024-11-06 15:42 | Outpatient (CLI) | payer OTHER, SELFPAY ==
--- NOTE | ~2024-11-06 | XR_ITS ---
3 VIEWS LUMBAR SPINE Ordering provider: Mely Gomez PA-C History: . M54.50 - Low back pain, unspecified . Comparison: None. FINDINGS: VERTEBRAL BODIES: No visible fracture or subluxation. DISK SPACES: Slight narrowing of the disc L5-S1. SOFT TISSUES: Normal. IMPRESSION: No acute osseous abnormality lumbar spine. Slight narrowing of the disc L5-S1. Reviewed, dictated and finalized at location A.
--- OUTSIDE RECORDS SUMMARY | 2024-11-06 15:51 | XMS_ITS | Clinical Summary ---
Author Organization [facility] at the [facility] Address [address] [place], [place] [id number] Care Team Providers Care Air Traffic Control Equipment Repairer Name Role Phone Mouna Pnadya MD Primary Care Provider [phone] Allergies Active Allergy Reactions Criticality Noted Date Comments Sulfa (Sulfonamide Antibiotics) Rash Medium 03/09 Topiramate Rash Medium 03/22/2023 Medications levothyroxine (SYNTHROID) 75 mcg tablet 3 Active sertraline (ZOLOFT) 25 mg tablet 2 tablets (50 mg total) 3 Active vit 63-ptkp-mtrym-dh a 27mg iron- 800 mcg-250 mg capsule Take by mouth Active atogepant (Qulipta) 30 mg tabletIndication s:Intractable chronic migraine without aura and without status migrainosus Take 30 mg by mouth daily 30 tablet 11 5 07/22/19 26 Active eletriptan (RELPAX) 20 mg tabletIndication s:Migraine Take 1 tablet (20 mg total) by mouth once as needed for migraine May repeat one time after 2 hours if needed. 9 tablet 3 5 07/22/19 26 Active Active Problems Problem Noted Date Diagnosed Date History of migraine during 03/22/2023 Overview (04/18/2023): History - 03/22: Helen reports that she first was diagnosed with migraine headaches at age 15. Prior to she had 1-2 migraines per month. During she is having 2 migraines per week with aura that are associated with nausea, numbness, dizziness that prevents her from working the next day. She has trialed numerous medications including magnesium, riboflavin, propranolol, compazine, reglan, zofran, triptans without any significant relief. She has not seen a neurologist since age 15. - 03/22: s/p counseling, started on steroid course - 04/16: neurology appointment, recs: zoloft increase and botox - 04/18: only one migraine since last visit, doing very well Summary of recommendations - steroid course pescribed 03/22: methylprednisolone 4mg (one full medrol dose pack) - continue care per neurology team - planning for botox and increased zoloft - if migraines worsen, can repeat medrol dose pack Migraine 03/20/2023 Other specified diseases and conditions complicating 03/20/2023 Hypothyroidism complicating in second trimester 03/20/2023 Overview (04/18/2023): - 03/22: s/p counseling - current regimen: synthroid 75mcg Summary of recommendations [] TSH Q4-6 weeks until WNL, then qtrimester - due to obtain w/ primary ObGyn [] testing if poorly controlled Supervision of high-risk , second trime ster 03/20/2023 Overview (04/18/2023): [] Co-management vs. [] Full MFM Care; [] Red Team [] Blue Team Referring Provider: Barbara Newman [phone] [] or Medicare Insurance [x] Dating Criteria: LMP 09/05/22 with CESILIA 07/10/23 [x] Labs: Rh [AB+], Ab [negative], Rubella [immune], HIV [non- reactive], HepBSAg [non-reactive], RPR [non-reactive], Hep C [not done], Varicella [positive], GC/CT [not done] [x] Genetic Screening: NIPT: negative, CF negative, SMA negative [x] CBC/Hgb 13.1/38.8/plt 232 [] Early 1hr GTT (if indicated) [] UCx: requested 03/20 [] Pap: requested 03/20 [] LD ASA (if indicated) starting at 12 weeks: [] EPDS [ ]; PNBHS referral (if indicated) 2nd Tri Labs: [x] Anatomy ultrasound: 03/22 - EFW 662g (33%ile), anterior placenta [] CBC/1hr gtt at 24-28wks: to obtain w/ primary ObGyn [] Flu Shot (Mar-Jun): to obtain w/ primary ObGyn [] Tdap (27-36wks): to obtain w/ primary ObGyn : AB+ 3rd Tri Labs: [] CBC/HIV/RPR/T&S: [] GBS: [] GC/CT (if indicated): [] testing: Counseling [] MOD: [] Place of delivery: [] Last clinic visit SVE: [] IOL start agent: [] Epidural: [] Consents signed: [] MOC: [] Method of feeding: [] Resident Care Technician: [] PP Depression Discussed: Encounters Date Type Department Care Team Description 10/21/2024 3:00 PM CDT [facility] [place] [address] Hue Estrella DO Intractable chronic migraine without aura and without status migrainosus (Primary Dx) from Last 3 Months Surgical History Surgery Date Site/Laterality Comments APPENDECTOMY BUNIONECTOMY Medical History Medical History Date Comments Migraine with aura Social History Tobacco Use Types Packs/Day Years Used Date Smoking Tobacco: Never Smokeless Tobacco: Never Tobacco Cessation:Counseling Given: Not Answered Comments Unknown Sex and Gender Information Value Date Recorded Sex Assigned at Not on file Legal Sex Female 4:44 PM CDT Gender Identity Not on file Sexual Orientation Not on file Obstetrics History Para Term AB IAB SAB Ectopic Multiple Livin g Live Births 1 Date Outcome GA Total Labor Labor/2nd/3rd Weight Sex Type Anes PTL Sarah A1 A5 Name Clin Last Filed Vital Signs Vital Sign Reading Time Taken Comments Blood Pressure 118/72 10/21/2024 3:02 PM CDT Pulse 81 10/21/2024 3:02 PM CDT Temperature - - Respiratory Rate 16 10/21/2024 3:02 PM CDT Oxygen Saturation 97% 04/18/2023 4:35 PM CDT Inhaled Oxygen Concentration - - Weight 86.2 kg (190 lb) 10/21/2024 3:02 PM CDT Height 165.1 cm (5' 5 ) 10/21/2024 3:02 PM CDT Body Mass Index 31.62 10/21/2024 3:02 PM CDT Plan of Treatment Health Maintenance Due Date Last Done Comments Cervical Cancer Screening 1997 Depression Screening 1997 Hepatitis C Screening 1997 Varicella Vaccines (1 of 2 - 13+ 2-dose series) 2010 Hepatitis B Screening 2015 Regular Well Visit/Exam 18-64 2015 Influenza Vaccine (Season Ended) 2025 05/05/20 23 DTaP/Tdap/Td Vaccine (2 - Td or Tdap) 05/05/2033 05/05/2023 HPV Vaccines Aged Out No longer eligi ble based on patient's age to complete this topic Pneumococcal vaccine <65 Aged Out No longer eligible based on patient's age to complete this topic Procedures Procedure Name Priority Date/Time Associated Diagnosis Comments BOTOX INJECTION Routine 10/21/2024 3:00 PM CDT Intractable chronic migraine without aura and without status migrainosus from Last 3 Months Results * Botox Injection (10/21/2024 3:00 PM CDT) Narrative Stella Cadet - 10/21/2024 3:00 PM CDT Stella Cadet 10/22/2024 1:42 PM Botox Injection Performed by: Hue Estrella DO Authorized by: Hue Estrella DO [place] Protocol: Procedure Details - Botox Injection: Procedure Details: See Botox flow sheet for details on injection sites and amounts. Hue Estrella DO IN CLINIC/BEDSIDE ORDERABLE S Final Result from Last 3 Months [facility] [employer] Address: [facility] [address] [place] [address] Care Teams Air Traffic Control Equipment Repairer Relationship Specialty Start Date End Date Mouna Pandya MD [address] [place] [address] PCP - General Internal Medicine 03/26/23
--- OUTSIDE RECORDS SUMMARY | 2024-11-06 15:51 | XMS_ITS | Referral Summary ---
Author Organization [facility] at the [facility] Address [address] [place] [address] Care Team Providers Care Furniture Finisher Name Role Phone Mouna Pandya MD Primary Care Provider [phone] Encounters Date Type Department Care Team Description 10/21/2024 3:00 PM CDT [facility] [address] [facility] [address] [place] [address] Hue Estrella DO Intractable chronic migraine without aura and without status migrainosus (Primary Dx) from Last 3 Months Allergies Active Allergy Reactions Criticality Noted Date Comments Sulfa (Sulfonamide Antibiotics) Rash Medium 03/09 Topiramate Rash Medium 03/22/2023 Medications levothyroxine (SYNTHROID) 75 mcg tablet 3 Active sertraline (ZOLOFT) 25 mg tablet 2 tablets (50 mg total) 3 Active vit 82-ufhj-sgwdf-dh a 27mg iron- 800 mcg-250 mg capsule [...] Overview (04/18/2023): [] Co-management vs. [] Full M Care; [] Red Team [] Blue Team Referring Provider: Barbara Newman [phone] [] or Medicare Insurance [x] Dating Criteria: [...] [] MOC: [] Method of feeding: [] Language Asst: [] PP Depression Discussed: Social History Tobacco Use Types Packs/Day Years Used Date Smoking Tobacco: Never Smokeless Tobacco: Never Tobacco Cessation:Counseling Given: Not Answered Comments Unknown Sex and Gender Information Value Date Recorded Sex Assigned at Not on file Legal Sex Female 4:44 PM CDT Gender Identity Not on file Sexual Orientation Not on file Last Filed Vital Signs Vital Sign Reading [...] 10/21/2024 3:02 PM CDT Plan of Treatment Not on file Procedures Procedure Name Priority Date/Time Associated Diagnosis Comments BOTOX INJECTION Routine 10/21/2024 3:00 PM CDT Intractable chronic migraine without aura and without status migrainosus from Last 3 Months Results * Botox Injection (10/21/2024 3:00 PM CDT) Narrative Stella Cadet - 10/21/2024 3:00 PM CDT Stella Cadet 10/22/2024 1:42 PM Botox Injection Performed by: Hue Estrella DO Authorized by: Hue Estrella DO [place] Protocol: Procedure Details - Botox Injection: Procedure Details: See Botox flow sheet for details on injection sites and amounts. Hue Estrella DO IN CLINIC/BEDSIDE ORDERABLE S Final Result from Last 3 Months Insurance [employer] Care Teams Furniture Finisher Relationship Specialty Start Date End Date Mouna Pandya MD [address] [place] [address] PCP - General Internal Medicine 03/26/23
[2024-11-06 18:24] LABS: Free T4 Free Thyroxine 0.98 ng/dL (0.78-2.19)
== END 2024-11-06 15:43 | disposition home or self-care (01) ==
PROVIDERS: PCP Family Medicine; Visit Provider Physician Assistant
DX: E06.3 Autoimmune thyroiditis (principal); E03.9 Hypothyroidism, unspecified; R53.83 Other fatigue; L85.3 Xerosis cutis; M54.50 Low back pain, unspecified
CPT/HCPCS: 36415; 72100; 84439; 84443

== ENCOUNTER 2024-11-12 20:26 | Emergency (ER) | payer OTHER, SELFPAY ==
--- OUTSIDE RECORDS SUMMARY | 2024-11-12 20:28 | XMS_ITS | Referral Summary ---
Author Organization [facility] at the [facility] Address [address] [place] [address] Care Team Providers Care Quality Control Auditor Name Role Phone Mouna Pandya MD Primary Care Provider [phone] Encounters Date Type Department Care Team Description 10/21/2024 3:00 PM CDT [facility] visit [facility] [address] [facility] [address] [place] [phone] Hue Estrella DO Intractable chronic migraine without aura and without status migrainosus (Primary Dx) from Last 3 Months Allergies Active Allergy Reactions Criticality Noted Date Comments Sulfa (Sulfonamide Antibiotics) Rash Medium 03/09 Topiramate Rash Medium 03/22/2023 Medications levothyroxine (SYNTHROID) 75 mcg tablet 3 Active sertraline (ZOLOFT) 25 mg tablet 2 tablets (50 mg total) 3 Active vit 60-numm-ghoru-dh a 27mg iron- 800 mcg-250 mg capsule [...] [] Blue Team Referring Provider: Barbara Newman [phone] [] or Medicare Insurance [x] Dating Criteria: [...] [] MOC: [] Method of feeding: [] Director Of Community Life: [] PP Depression Discussed: Social History Tobacco [...] Estrella DO Authorized by: Hue Estrella DO [place] Protocol: Procedure Details - Botox Injection: Procedure Details: See Botox flow sheet for details on injection sites and amounts. Hue Estrella DO IN CLINIC/BEDSIDE ORDERABLE S Final Result from Last 3 Months Insurance [employer] Care Teams Quality Control Auditor Relationship Specialty Start Date End Date Mouna Pandya MD [address] [place] [address] PCP - General Internal Medicine 03/26/23
--- OUTSIDE RECORDS SUMMARY | 2024-11-12 20:28 | XMS_ITS | Clinical Summary ---
Author Organization [facility] at the [facility] Address [address] [place], [place] [id number] Care Team Providers Care Flight Communications Officer Name Role Phone Mouna Pandya MD Primary Care Provider [phone] Allergies Active Allergy Reactions Criticality Noted Date Comments Sulfa (Sulfonamide Antibiotics) Rash Medium 03/09 Topiramate Rash Medium 03/22/2023 Medications levothyroxine (SYNTHROID) 75 mcg tablet 3 Active sertraline (ZOLOFT) 25 mg tablet 2 tablets (50 mg total) 3 Active vit 82-byra-melbn-dh a 27mg iron- 800 mcg-250 mg capsule [...] [] Blue Team Referring Provider: Barbara Newman [phone] [] or Medicare Insurance [x] Dating Criteria: [...] [] MOC: [] Method of feeding: [] Greenskeeper Head: [] PP Depression Discussed: Encounters Date Type Department Care Team Description 10/21/2024 3:00 PM CDT Procedure visit [facility] [address] Hue Estrella DO Intractable chronic [...] Estrella DO Authorized by: Hue Estrella DO [place] Protocol: Procedure Details - Botox Injection: Procedure Details: See Botox flow sheet for details on injection sites and amounts. Hue Estrella DO IN CLINIC/BEDSIDE ORDERABLE S Final Result from Last 3 Months [facility] Address: [facility] [id number] [place] [address] [employer] EMPLOYEE [employer] PL[employer] Address: [facility] [address] [place] [address] Care Teams Flight Communications Officer Relationship Specialty Start Date End Date Mouna Pandya MD [address] [place] [address] PCP - General Internal Medicine 03/26/23
[2024-11-12 20:34] VITALS: BP 113/78; PULSE 92; RESP 18; TEMP 37.1; O2SAT 98
--- OUTSIDE RECORDS SUMMARY | 2024-11-12 21:23 | XMS_ITS | Clinical Summary ---
Author Organization [facility] at the [facility] Address [address] [place], [place] [id number] Care Team Providers Care Rn Cardiovascular Name Role Phone Mouna Pandya MD Primary Care Provider [phone] Allergies Active Allergy Reactions Criticality Noted Date Comments Sulfa (Sulfonamide Antibiotics) Rash Medium 03/09 Topiramate Rash Medium 03/22/2023 Medications levothyroxine (SYNTHROID) 75 mcg tablet 3 Active sertraline (ZOLOFT) 25 mg tablet 2 tablets (50 mg total) 3 Active vit 97-netl-fmjxz-dh a 27mg iron- 800 mcg-250 mg capsule [...] [] Blue Team Referring Provider: Barbara Newman [phone] [] or Medicare Insurance [x] Dating Criteria: [...] [] MOC: [] Method of feeding: [] Alliance Consultant: [] PP Depression Discussed: Encounters Date Type Department Care Team Description 10/21/2024 3:00 PM CDT Procedure visit [facility] [address] [address] Hue Estrella DO Intractable chronic [...] Estrella DO Authorized by: Hue Estrella DO [place] Protocol: Procedure Details - Botox Injection: Procedure Details: See Botox flow sheet for details on injection sites and amounts. Hue Estrella DO IN CLINIC/BEDSIDE ORDERABLE S Final Result from Last 3 Months [facility] [employer] Care Teams Rn Cardiovascular Relationship Specialty Start Date End Date Mouna Pandya MD [address] [place] [address] PCP - General Internal Medicine 03/26/23
--- OUTSIDE RECORDS SUMMARY | 2024-11-12 21:23 | XMS_ITS | Referral Summary ---
Author Organization [facility] at the [facility] Address [address] [place] [address] Care Team Providers Care Business Advisor Name Role Phone Mouna Pandya MD Primary Care Provider [phone] Encounters Date Type Department Care Team Description 10/21/2024 3:00 PM CDT [facility] visit [facility] [address] [facility] [address] [place] [phone] Hue Estrella DO Intractable chronic migraine without aura and without status migrainosus (Primary Dx) from Last 3 Months Allergies Active Allergy Reactions Criticality Noted Date Comments Sulfa (Sulfonamide Antibiotics) Rash Medium 03/09 Topiramate Rash Medium 03/22/2023 Medications levothyroxine (SYNTHROID) 75 mcg tablet 3 Active sertraline (ZOLOFT) 25 mg tablet 2 tablets (50 mg total) 3 Active vit 97-ncaz-zqhgi-dh a 27mg iron- 800 mcg-250 mg capsule [...] [] Blue Team Referring Provider: Barbara Newman [phone] [] or Medicare Insurance [x] Dating Criteria: [...] [] MOC: [] Method of feeding: [] Rubber Insulator: [] PP Depression Discussed: Social History Tobacco [...] Estrella DO Authorized by: Hue Estrella DO [place] Protocol: Procedure Details - Botox Injection: Procedure Details: See Botox flow sheet for details on injection sites and amounts. Hue Estrella DO IN CLINIC/BEDSIDE ORDERABLE S Final Result from Last 3 Months Insurance [employer] [place] [employer] Address: [facility] [address] [place] [address] [employer] [place] [employer] Address: [facility] [id number] [place] [phone] Care Teams Business Advisor Relationship Specialty Start Date End Date Mouna Pandya MD [address] [place] [address] PCP - General Internal Medicine 03/26/23
== END 2024-11-12 21:30 | disposition left against medical advice (07) ==
LOC: ANHED 21:21
PROVIDERS: PCP Family Medicine
DX: R10.9 Unspecified abdominal pain (principal)
CPT/HCPCS: 99199

== ENCOUNTER 2025-01-07 13:47 | Outpatient (CLI) | payer OTHER, SELFPAY ==
[2025-01-07 15:04] LABS: Thyroid Stimulating Hormone 1.500 uIU/mL (0.465-4.680)
== END 2025-01-07 13:48 | disposition home or self-care (01) ==
LOC: ANHLAB 13:48
PROVIDERS: PCP Family Medicine; Visit Provider Physician Assistant Medical
DX: E06.3 Autoimmune thyroiditis (principal)
CPT/HCPCS: 36415; 84443